=== PATIENT | male | born 1970 | race Caucasian/White ===

== ENCOUNTER 2018-07-19 18:05 | Emergency (ER) | payer OTHER ==
[~2018-07-19] VITALS: Ht 175.3 cm; Wt 81.7 kg
[~2018-07-19 18:05] MED LIST: AUGMENTIN 875875 MG PO; BACTRIM DS TAB1 EACH PO; BENADRYL25 MG PO; CIPROFLOXIN HC2.5 M1 OPHTHALMIC; DIPHENHIST50 MG PO; GENTAMICIN SU3 MG/ML OPHTHALMIC; HYDROXYZINE HCL25 M1 PO; IBUPROFEN 800800 M1 PO; KEFLEX500 MG PO; METFORMIN HCL500 MG PO; NORCO 5-325 TA1 EACH PO; PENICILLIN VK500 MG PO; PREDNISONE 10 M10 MG PO; PREDNISONE50 MG PO; REMERON15 MG PO; TRAMADOL 50 MG50 MG PO; TRIAMCINOLONE A80 G2 TOP; VISTARIL 25 MG25 M1 PO
[2018-07-19] MEDS ORDERED: HUMALOG100 UNIT/1 SUBQ (18:12)
[2018-07-19] MEDS ORDERED: PREDNISONE 10 M10 MG PO (19:03)
[2018-07-19 19:20] VITALS: BP 157/100
[2018-07-19] MEDS ORDERED: TRIAMCINOLONE A80 G2 TOP (19:20)
== END 2018-07-19 19:20 | disposition home or self-care (01) ==
LOC: M.ERS 18:05
DX: R21 Rash and other nonspecific skin eruption (principal); Z88.6 Allergy status to analgesic agent; Z91.013 Allergy to seafood

== ENCOUNTER 2018-10-19 22:25 | Emergency (ER) | payer OTHER ==
[~2018-10-19] VITALS: Ht 175.3 cm; Wt 81.7 kg
[~2018-10-19 22:25] MED LIST changes: +HUMALOG100 UNIT/1 SUBQ
[2018-10-19 23:36] LABS: HEMATOCRIT 38.3 % (42.0-52.0); HEMOGLOBIN 13.2 gm/dL (14.0-18.0); MCH 28.2 pg (26.0-34.0); MCHC 34.5 g/dL (28.0-37.0); MCV 81.7 fL (80.0-100.0); MPV 6.6 fl. (7.2-11.1); RBC 4.69 mil/uL (4.50-6.00); RDW-CV 13.3 % (10.5-14.5); WBC 7.8 thou/uL (4.0-11.0)
[2018-10-19 23:54] LABS: CALCIUM 9.2 mg/dL (8.5-10.1); CREATININE 0.9 mg/dL (0.6-1.3); POTASSIUM 3.2 mmol/L (3.5-5.1)
[2018-10-19 23:59] LABS: ALBUMIN 3.5 g/dL (3.4-5.0); TOTAL BILIRUBIN 0.7 mg/dL (<0.1-1.0)
[2018-10-20] MEDS ORDERED: MEDROLDOSEPACK PO (00:29)
[2018-10-20] MEDS ORDERED: HYDROXYZINE HCL25 M1 PO (00:29)
[2018-10-20] MEDS ORDERED: SYNALAR120 GM TOP (00:30)
[2018-10-20] MEDS ORDERED: PREDNISONE50 MG PO (00:42)
[2018-10-20 00:52] VITALS: BP 131/78
== END 2018-10-20 00:53 | disposition home or self-care (01) ==
LOC: M.ERS 22:25
PROVIDERS: Personal Emergency Response Attendant
DX: L50.9 Urticaria, unspecified (principal); R22.0 Localized swelling, mass and lump, head; Z88.6 Allergy status to analgesic agent; Z91.013 Allergy to seafood; Z87.442 Personal history of urinary calculi

== ENCOUNTER 2018-11-30 15:11 | Emergency (ER) | payer OTHER ==
[~2018-11-30] VITALS: Ht 175.3 cm; Wt 81.7 kg
[~2018-11-30 15:11] MED LIST changes: +MEDROLDOSEPACK PO; +SYNALAR120 GM TOP
[2018-11-30] MEDS ORDERED: PREDNISONE 10 M10 MG PO (15:55)
[2018-11-30] MEDS ORDERED: TRIAMCINOLONE A80 G2 TOP (15:55)
[2018-11-30 16:21] VITALS: BP 117/79
== END 2018-11-30 16:22 | disposition home or self-care (01) ==
LOC: M.ERS 15:11
DX: L50.9 Urticaria, unspecified (principal); E11.9 Type 2 diabetes mellitus without complications; Z88.6 Allergy status to analgesic agent; Z91.013 Allergy to seafood; Z87.442 Personal history of urinary calculi; Z79.4 Long term (current) use of insulin